=== PATIENT | male | born 2000 | race Caucasian/White ===

== ENCOUNTER 2023-08-13 11:45 | Emergency (ER) | payer OTHER ==
[~2023-08-13] VITALS: Ht 190.5 cm; Wt 127.5 kg
[2023-08-13 12:06] VITALS: BP 137/73; PULSE 97; RESP 18; TEMP 96.9; O2SAT 98
[2023-08-13] MEDS ORDERED: FLUORESCEIN OPTH STRIP 1 MG OP ONE ×2 (13:10)
[2023-08-13] MEDS ORDERED: TETRACAINE HCL/PF 0.5% OPTH 4 ML BTL OP ONE (13:10)
[2023-08-13] MEDS ORDERED: FLUORESCEIN OPTH STRIP 1 MG ONE (14:16)
[2023-08-13] MEDS ORDERED: POLY10SO OP (14:48)
[2023-08-13 15:16] VITALS: BP 137/33; PULSE 97; RESP 18; TEMP 96.9; O2SAT 97
== END 2023-08-13 15:12 | disposition home or self-care (01) ==
LOC: MED 11:45
DX: H10.9 Unspecified conjunctivitis (principal); Z79.2 Long term (current) use of antibiotics
CPT/HCPCS: 99284